=== PATIENT | female | born 1945 | race Native Hawaiian/Other Pacific Islander ===

== ENCOUNTER 2017-08-29 15:18 | Emergency (ER) | payer OTHER ==
[~2017-08-29] VITALS: Wt 49.9 kg
[2017-08-29 15:18] VITALS: TEMP 97.7
[~2017-08-29 15:18] MED LIST: DIVA500T2 PO; DONE5TAB PO; ESCI10TA PO; GERI MUCIL PO; GERI-MUCIL68 % PO; LEVO0.0218 PO; MEMANTINE HCL10 MG PO; OXYGEN INH; PROSTAT PO; RISP50IN IM; WATESOL21 IR; ZANTAC300 MG PO; ZIPR20IN IM; ZIPR80CA PO; ZYBAN150 MG PO
[2017-08-29 16:11] LABS: PLATELET COUNT 129 K/uL (152-353)
[2017-08-29 16:22] LABS: POTASSIUM 4.5 mmol/L (3.6-5.2)
[2017-08-29 18:19] VITALS: BP 121/65
[2017-08-29] MEDS ORDERED: UNITH DIRECT25 MCG PO (21:55)
[2017-08-29] MEDS ORDERED: RESOURCE PO (21:57)
[2017-08-29] MEDS ORDERED: ZIPRASIDONE HCL20 MG PO (21:59)
[2017-08-29] MEDS ORDERED: MEMANTINE HCL PO (22:00)
[2017-08-29] MEDS ORDERED: BUSPIRONE10 MG PO (22:01)
[2017-08-29] MEDS ORDERED: TEMA15CA19 PO (22:02)
[2017-08-29] MEDS ORDERED: MULTI VITAMIN1 TAB PO (22:03)
[2017-08-29] MEDS ORDERED: CLON0.5T36 PO (22:04)
[2017-08-29] MEDS ORDERED: DIVALPROEX SOD DR PO (22:06)
[2017-08-29] MEDS ORDERED: OMEPRAZOLE MAGNESIUM PO (22:07)
[2017-08-29] MEDS ORDERED: ESCITALOPRAM20 MG PO (22:08)
[2017-08-29] MEDS ORDERED: ZIPRASIDONE HCL80 MG PO (22:10)
== END 2017-08-29 19:42 | disposition other institution (70) ==
LOC: ED 15:18
PROVIDERS: Specialist
DX: F25.8 Other schizoaffective disorders (principal); Z00.8 Encounter for other general examination
CPT/HCPCS: 36415; 80053; 81000; 84443; 85027; 96372; 99285; J3486